=== PATIENT | male | born 1945 | race Caucasian/White ===

== ENCOUNTER 2023-01-12 17:21 | Emergency (ER) | payer MEDICARE, SELFPAY ==
[2023-01-12] VITALS (17 sets, daily range): BP systolic 119–164; BP diastolic 72–104; PULSE 66–80; RESP 16–18; TEMP 36.4–37; O2SAT 95–100; BMI 28.5
--- NOTE | 2023-01-12 17:59 | ED.GENADULT ---
HPI - General Adult General Chief complaint: Diabetic Related Problem Stated complaint: Shortness of breath, high blood sugar Time Seen by Provider: 01/12/23 17:37 History of Present Illness HPI narrative: This 77-year-old male comes in with family members and reports elevated blood glucose for most of the days of the past couple weeks. He lives in an assisted living facility where his is receiving assistance but he is not. He is taking Lantus, Humalog, and metformin. He states that sometimes the Humalog is not administered. He has been snacking also during this time and reports a few occasions where the glucose meter returns with a reading of high which is greater than 600. On arrival here his glucose is 404. He does report some shortness of breath but does not describe any cough, fever, or orthopnea. He arrives with normal vital signs. He does not report any weight gain and does not have pedal edema. Related Data Allergies Allergy/AdvReac Type Severity Reaction Status Date / Time No Known Drug Allergies Allergy Verified 01/12/23 17:40 Review of Systems Status of ROS: Reports: 10 or more systems reviewed and unremarkable except as noted in History and below Narrative: Constitutional: No fevers, no weight gain or loss. Eyes: No discharge. No vision changes. HENT: No congestion, no sore throat, no ear pain. Cardiovascular: No chest pain, no palpitations. Respiratory: No wheezes, no cough. He reports shortness of breath. Gastrointestinal: No abdominal pain, no vomiting, no diarrhea. Genitourinary: No dysuria, no hematuria. Musculoskeletal: Normal range of motion. Skin: No rashes, no pruritis. Neurological: No dizziness, weakness, sensory change, speech change. Endo/Heme/Allergies: No bruising or bleeding. No polydipsia. Pysch: no suicidality, no anxiety, no insomnia. All other systems reviewed and are negative. [facility] Medical History (Updated 01/12/23 @ 19:30 by Mike Nunn MD) Hypertension ?I10 - Essential (primary) hypertension (ICD-10) DM (diabetes mellitus), type 2 ?E11.9 - Type 2 diabetes mellitus without complications (ICD-10) CAD (coronary artery disease) ?I25.10 - Atherosclerotic heart disease of lummi coronary artery without angina pectoris (ICD-10) Social History Smoking Status: Never smoker Do you use any of these nicotine containing products: None Second hand tobacco smoke exposure: No How often do you have a drink containing alcohol: never How often do you have six or more drinks on one occasion: Never AUDIT-C Alcohol total score: 0 service: No Exam Narrative: Exam Narrative: Constitutional: Well-developed, well-nourished, no acute distress. HEENT: Normocephalic, atraumatic. Neck: Normal range of motion. Nontender. Supple. Heart: Regular. No murmurs. Normal rate. Intact distal pulses. Lungs: Clear to auscultation. No chest discomfort. No wheezes, rhonchi, or rales. Abdomen: Normal bowel sounds. Nontender. No rebound tenderness. Genitalia: Deferred. Back: No midline tenderness. Normal range of motion. Extremities: Normal range of motion. No injury. No pedal edema. Skin: Intact. No rash. Warm. No erythema or pallor. Neurologic: No altered sensation. No weakness. Alert and oriented. He is hard of hearing. Psychiatric: No suicidality. No anxiety or depression. No insomnia. Nursing notes and vitals signs are reviewed. Const: Vital Signs, click to edit/add: Vital Signs - 24 hr 01/12/23 17:36 01/12/23 17:54 01/12/23 18:00 Temperature 97.5 F L Pulse Rate 77 79 Pulse Rate [Pulse Oximeter] 75 Respiratory Rate 18 Blood Pressure Blood Pressure [Ri ght Upper Arm] 148/76 H Pulse Oximetry 100 95 96 Oxygen Delivery Me thod Room Air 01/12/23 18:02 01/12/23 18:15 01/12/23 18:17 Temperature Pulse Rate 78 75 78 Pulse Rate [Pulse Oximeter] Respiratory Rate Blood Pressure 145/72 H 136/77 Blood Pressure [Ri ght Upper Arm] Pulse Oximetry 98 98 99 Oxygen Delivery Me thod 01/12/23 18:30 01/12/23 18:32 Temperature Pulse Rate 74 80 Pulse Rate [Pulse Oximeter] Respiratory Rate Blood Pressure 132/72 Blood Pressure [Ri ght Upper Arm] Pulse Oximetry 99 98 Oxygen Delivery Me thod Course Vital Signs Vital signs: Initial Vital Signs Temperature 97.5 F L 01/12/23 17:36 Temperature Source Temporal Artery Scan 01/12/23 17:36 Pulse Rate 75 01/12/23 17:36 Pulse Rhythm Regular 01/12/23 17:36 Respiratory Rate 18 01/12/23 17:36 Blood Pressure 148/76 H 01/12/23 17:36 Blood Pressure Mean 100 01/12/23 17:36 Blood Pressure Position Sitting 01/12/23 17:36 Pulse Oximetry 100 01/12/23 17:36 Oxygen Delivery Method Room Air 01/12/23 17:36 Vital Signs Temperature 97.5 F L 01/12/23 17:36 Pulse Rate 75 01/12/23 17:36 Respiratory Rate 18 01/12/23 17:36 Blood Pressure 148/76 H 01/12/23 17:36 Pulse Oximetry 100 01/12/23 17:36 Oxygen Delivery Method Room Air 01/12/23 17:36 Temperature 97.5 F L 01/12/23 17:36 Pulse Rate 80 01/12/23 18:32 Respiratory Rate 18 01/12/23 17:36 Blood Pressure 132/72 01/12/23 18:32 Pulse Oximetry 98 01/12/23 18:32 Oxygen Delivery Method Room Air 01/12/23 17:36 Medical Decision Making MDM Narrative Medical decision making narrative: This patient comes in with elevated blood glucose and reports that he seems to be more fatigued and has some shortness of breath with exertion. He does state that he does not get up and move around much so some of this can be deconditioning. His vital signs including heart rate and oximetry are in normal range. He is consistently at 98-99% oximetry on room air. His blood glucose is elevated at around 400. He did receive 10 units of regular insulin which brought it down by about 50 points. EKG shows normal sinus rhythm. There is some T-wave inversion in aVL but there are no ST changes in the inferior leads. Additionally his troponin returns in the normal range. He has not had any chest pain. Lab results returned with a mild anemia and a little bit of renal insufficiency. The patient does have an appointment with his primary physician in 1 week. His family members are realizing that he is in need of extra services at home. His is getting services from their assisted living status but he has not. They plan to make arrangements at least to have someone administer his medications more consistently. Lab Data Labs: Lab Results 01/12/23 01/12/23 Range/Units 17:12 18:12 WBC 8.75 (4.50-11.00) K/uL RBC 3.65 L (4.30-5.90) m/uL Hgb 11.3 L (13.5-17.5) gm/dL Hct 33.2 L (37.0-53.0) % MCV 91 (80-100) fL MCH 31 (26-34) pg MCHC 34 (32-36) gm/dL RDW Coeff of Rosalie 12.9 (11.5-15.5) % Plt Count 233 (140-440) K/uL Neut % (Auto) 66.8 (42.0-72.0) % Lymph % (Auto) 23.8 (20-44) % Lamb % (Auto) 8.1 (0.0-11.0) % Eos % (Auto) 0.8 (0.0-7.0) % Baso % (Auto) 0.3 (0.0-3.0) % Neut # (Auto) 5.84 (1.7-7.0) K/uL Lymph # (Auto) 2.08 (0.90-2.90) K/uL Lamb # (Auto) 0.70 (0.00-0.90) K/UL Eos # (Auto) 0.07 (0.00-0.50) K/uL Baso # (Auto) 0.03 (0.00-0.30) K/uL Abs Immat Gran (auto) 0.02 (0.00-0.30) K/uL Imm/Tot Granulo (auto) 0.2 % Sodium 130 L (135-149) mmol/L Potassium 4.2 (3.6-5.1) mmol/L Chloride 96 (96-114) mmol/L Carbon Dioxide 23 (20-32) mmol/L BUN 29 (7-30) mg/dL Creatinine 1.6 H (0.5-1.5) mg/dL Estimated Creat Clear 41.76 Estimated GFR 44 ml/min Glucose 406 H* (60-115) mg/dL Calcium 9.1 (8.4-10.6) mg/dL POC Troponin I 0.03 (0.01-0.04) ng/ml Discharge Plan Discharge Clinical Impression: Hyperglycemia due to diabetes mellitus Patient Disposition: Home w/ Parent or Adult Condition: Stable Additional Instructions: Continue current plans. Take medications as prescribed. Follow up with MD to review glucose management and medications. Return if worsening symptoms occur. Stand Alone Forms: [employer] Info Instructions
[2023-01-12 18:20] LABS: Basophils Absolute Auto 0.03 K/uL (0.00-0.30); Basophils Percent Auto 0.3 % (0.0-3.0); Eosinophils Absolute Auto 0.07 K/uL (0.00-0.50); Eosinophils Percent Auto 0.8 % (0.0-7.0); Hematocrit 33.2 % (37.0-53.0); Hemoglobin* 11.3 gm/dL (13.5-17.5); Immature Granulocytes Abs Auto 0.02 K/uL (0.00-0.30); Immature Granulocytes Pct Auto 0.2 %; Lymphocytes Absolute Auto 2.08 K/uL (0.90-2.90); Lymphocytes Percent Auto 23.8 % (20-44); Mean Corpuscular HGB Conc 34 gm/dL (32-36); Mean Corpuscular Hemoglobin 31 pg (26-34); Mean Corpuscular Volume 91 fL (80-100); Monocytes Percent Auto 8.1 % (0.0-11.0); Neutrophils Absolute Auto 5.84 K/uL (1.7-7.0); Neutrophils Percent Auto 66.8 % (42.0-72.0); Platelet Count* 233 K/uL (140-440); RDW Coefficient of Variation % 12.9 % (11.5-15.5); Red Blood Count 3.65 m/uL (4.30-5.90); White Blood Count* 8.75 K/uL (4.50-11.00)
[2023-01-12 18:28] LABS: Slide Review Reflex No
[2023-01-12 18:28] LABS: Troponin, Point-of-Care* 0.03 ng/ml (0.01-0.04)
[2023-01-12 18:34] LABS: Chloride* 96 mmol/L (96-114); Potassium* 4.2 mmol/L (3.6-5.1); Sodium* 130 mmol/L (135-149)
[2023-01-12 18:36] LABS: Creatinine* 1.6 mg/dL (0.5-1.5); Est. Creatinine Clearance* 41.76; Estimated Glomerular Filt Rate 44 ml/min
[2023-01-12 18:37] LABS: Blood Urea Nitrogen* 29 mg/dL (7-30); Calcium* 9.1 mg/dL (8.4-10.6); Carbon Dioxide* 23 mmol/L (20-32)
[2023-01-12 18:41] LABS: Glucose* 406 mg/dL (60-115)
== END 2023-01-12 19:45 | disposition home or self-care (01) ==
LOC: ED 19:46
PROVIDERS: Emergency Provider Emergency Medicine Emergency Medical Services
DX: E11.65 Type 2 diabetes mellitus with hyperglycemia (principal)
CPT/HCPCS: 36415; 80048; 82962; 84484; 85025; 93005; 99284